=== PATIENT | male | born 1980 | race Two or more races ===

== ENCOUNTER 2020-11-17 19:38 | Emergency (ER) | payer OTHER ==
[~2020-11-17] VITALS: Ht 175.3 cm; Wt 81.6 kg
--- NOTE | 2020-11-17 19:48 | NUR ---
PATIENT WAS JENNIFER MORALES IN ROOM 04B.
--- NOTE | 2020-11-17 19:55 | NUR ---
PATIENT REFUSED LAB DRAW DR MORALES AWARE.
[2020-11-17] MEDS ORDERED: IV NORMAL SALINE 1000 ML BAG IV ONE (20:45)
--- NOTE | 2020-11-17 21:53 | NUR ---
Patient IV infiltrated refused reinsert DR Martinez aware
--- NOTE | 2020-11-17 23:14 | NUR ---
Patient is resting comfortably in bed with eyes closed
[2020-11-17] MEDS ORDERED: NALO4SPR NS (23:56)
--- NOTE | 2020-11-18 00:08 | NUR ---
PATIENT C/O SI DR MORALES AWARE. NEW ORDERS GIVEN.
[2020-11-18 00:43] LABS: HEMATOCRIT 40.7 % (36.7-47.1); MEAN CORPUSCULAR VOLUME 87.6 fL (73.0-96.2); PLATELET COUNT (AUTO) 221 K/uL (152-348)
[2020-11-18 00:51] LABS: CARBON DIOXIDE 29 mmol/L (21-32); CHLORIDE 104 mmol/L (98-107); CREATININE 0.8 mg/dL (0.6-1.3); GLUCOSE 107 mg/dL (74-106); UREA NITROGEN, BLOOD 13 mg/dL (7-18)
[2020-11-18 00:57] LABS: ALANINE AMINOTRANSFERASE 41 U/L (16-63); ALKALINE PHOSPHATASE 130 U/L (50-136); ASPARTATE AMINOTRANSFERASE 32 U/L (15-37); BILIRUBIN,DIRECT 0.1 mg/dL (0.0-0.2); BILIRUBIN,TOTAL 0.3 mg/dL (0.2-1.0); TOTAL PROTEIN, SERUM 6.9 g/dL (6.4-8.2)
[2020-11-18 00:59] LABS: ACETAMINOPHEN < 2.0 ug/mL (10-30)
[2020-11-18 01:17] LABS: ETHANOL < 3 MG/DL (0-0)
--- NOTE | 2020-11-18 01:25 | NUR ---
Called [employer] for sitter, no sitter available at this time, ER staff will continue to monitor patient.
--- NOTE | 2020-11-18 01:40 | NUR ---
PATIENT MOVED TO ROOM 03A. [place] 1 TO 1 SITTER AT BEDSIDE.
[2020-11-18 02:46] LABS: *BILIRUBIN,URIN NEGATIVE (NEGATIVE); *BLOOD, URINE NEGATIVE (NEGATIVE); *CLARITY,URINE CLEAR (CLEAR); *COLOR,URINE YELLOW (YELLOW); *KETONES,URINE NEGATIVE (NEGATIVE); *UROBILINOGEN,URINE 0.2 E.U./dl (NORMAL); LEUKOCYTE ESTERASE ,URINE NEGATIVE (NEGATIVE); NITRITE, URINE NEGATIVE (NEGATIVE); PH,URINE 5.5 (5.0-8.0); UGLUCOSE NEGATIVE (NEGATIVE)
[2020-11-18 03:09] LABS: *AMPHETAMINE, URINE POSITIVE (NEGATIVE); *CANNABINOID, URINE NEGATIVE (NEGATIVE); *COCCAINE, URINE NEGATIVE (NEGATIVE); *OPIATE, URINE NEGATIVE (NEGATIVE); *PHENCYCLIDINE SCREEN,URINE NEGATIVE (NEGATIVE)
--- NOTE | 2020-11-18 03:41 | NUR ---
Pt medically cleared by Dr. Martinez.
--- NOTE | 2020-11-18 04:00 | NUR ---
Patient is resting comfortably in bed with eyes closed. 1 to 1 sitter at bedside
--- NOTE | 2020-11-18 05:00 | NUR ---
Patient in bed sleeping 03A. 1 to 1 sitter at bedside
--- NOTE | 2020-11-18 07:20 | NUR ---
Per night club manager report paperwork was faxed to [facility] for voluntary admission. Their intake department to call back with further information.
--- NOTE | 2020-11-18 07:30 | NUR ---
Pt is sleeping with NAD noted, 1:1 sitter left and there is no sitter assigned to the patient for this shift. Pt also does not have a primary nurse assigned as the ER is short staffed.
--- NOTE | 2020-11-18 08:30 | NUR ---
Report given to COLE Rojas.
--- NOTE | 2020-11-18 10:21 | NUR ---
Pt sleeping in room, no distress noted.
--- NOTE | 2020-11-18 11:40 | NUR ---
Spoke with Adalberto at intake dept for [facility] ( [phone] ). Per Adalberto the pt has been accepted however they do not have any open beds at this time. They have pending discharges and will have a bed later today and we should call back later today for an update.
--- NOTE | 2020-11-18 14:02 | NUR ---
Able to awaken pt easily, no complaints. Gave pt lunch tray.
--- NOTE | 2020-11-18 15:30 | NUR ---
Pt sleeping in room, no distress noted.
--- NOTE | 2020-11-18 15:40 | NUR ---
Arlette at [facility] has room at [place]; Admitting doctor Dr. Mann. Report to Kathleen at: [phone]
--- NOTE | 2020-11-18 16:11 | NUR ---
Called report to . [facility]. -- [place]; gave report to COLE Jaimes. Pt going to room 622-B after stopping at admitting. Accepting: Dr. Mann and Dr. Barbosa
--- NOTE | 2020-11-18 16:53 | NUR ---
Gave supervisor sanding report, Transfer papers, and pt chart. Pt transported.
== END 2020-11-18 16:58 ==
LOC: ER 19:40
DX: F11.20 Opioid dependence, uncomplicated (principal); R40.0 Somnolence; J98.11 Atelectasis; R00.0 Tachycardia, unspecified; F19.10 Other psychoactive substance abuse, uncomplicated; Z59.0 Homelessness; Z86.19 Personal history of other infectious and parasitic diseases; R94.31 Abnormal electrocardiogram [ECG] [EKG]; Z53.29 Procedure and treatment not carried out because of patient's decision for other reasons; Z20.822 Contact with and (suspected) exposure to COVID-19; R45.851 Suicidal ideations
CPT/HCPCS: 36415; 71045; 85025; 93005; A4663; G0480; J7030